=== PATIENT | male | born 1990 | race American Indian/Alaskan Native ===

== ENCOUNTER 2021-06-23 18:48 | Emergency (ER) | payer SELFPAY ==
[2021-06-23 19:12] VITALS: BP 127/85
--- NOTE | 2021-06-23 21:06 | Emergency Department Report ---
ED Abdominal Pain HPI - General Chief Complaint: Abdominal Pain Stated Complaint: STOMACH PAIN RT FOOT SWOLLEN Time Seen by Provider: 06/23/21 20:54 Source: patient Mode of arrival: Ambulatory Limitations: No Limitations - History of Present Illness Initial Comments: Patient presented with generalized abdominal pain. The started earlier in the day was in the periumbilical area. He described it is aching and cramping. He believes that he had food poisoning. He ate at a diner. Other people ate with him. He is unsure if they were ill or not. He states that the pain was cramping and doubled him over. He had some nausea associated with this. There was no hematemesis or coffee-ground emesis. He states that the symptoms are better now, although not completely resolved. The pain did not radiate or migrate. It was not associate with any kind of trauma or recent travel. He has had no change in bowel habits or urinary habits. Patient also states that he injured his right foot at work several days ago. He has pain in the anterior aspect and thinks that he may have sprained it. The pain is worse with ambulation and weightbearing. It is worse with palpation. He has noticed some swelling in this area. This is not involving the ankle itself, but the proximal area of the right foot. Severity scale (0 -10): 5 - Related Data Previous Rx's Medication Instructions Recorded Last Taken Type Hyoscyamine Subl [Levsin Sl 0.125 0.125 mg SL Q6HR PRN #20 tab 06/23/21 Unknown Rx TAB] Ibuprofen [Motrin 600 MG tab] 600 mg PO Q8H PRN #20 tablet 06/23/21 Unknown Rx Ondansetron [Zofran Odt] 4 mg PO Q8HR PRN #20 tab.rapdis 06/23/21 Unknown Rx Allergies Allergy/AdvReac Type Severity Reaction Status Date / Time No Known Allergies Allergy Unverified 06/23/21 19:12 ED Review of Systems ROS: Stated complaint: STOMACH PAIN RT FOOT SWOLLEN Other details as noted in HPI Comment: All other systems reviewed and negative Constitutional: denies: fever Eyes: denies: eye pain ENT: denies: throat pain Respiratory: denies: cough Cardiovascular: denies: chest pain Endocrine: denies: unexplained weight loss Gastrointestinal: as per HPI Genitourinary: denies: dysuria Musculoskeletal: denies: back pain Skin: denies: rash Neurological: denies: headache Hematological/Lymphatic: denies: easy bruising ED Past Medical Hx - Past Medical History Previous Medical History?: No - Family History Family history: no significant - Medications Home Medications: Home Medications Medication Instructions Recorded Confirmed Last Taken Type Hyoscyamine Subl [Levsin Sl 0.125 0.125 mg SL Q6HR PRN #20 tab 06/23/21 Unknown Rx TAB] Ibuprofen [Motrin 600 MG tab] 600 mg PO Q8H PRN #20 tablet 06/23/21 Unknown Rx Ondansetron [Zofran Odt] 4 mg PO Q8HR PRN #20 tab.rapdis 06/23/21 Unknown Rx ED Physical Exam - General Limitations: No Limitations, Other ( Pulse ox was noted and normal.) General appearance: alert, other ( Mild discomfort) - Head Head exam: Present: atraumatic, normocephalic, normal inspection - Eye Eye exam: Present: normal appearance, EOMI. Absent: scleral icterus - ENT ENT exam: Present: normal exam, normal orophraynx, normal external ear exam - Neck Neck exam: Present: normal inspection. Absent: meningismus - Respiratory Respiratory exam: Present: normal lung sounds bilaterally. Absent: respiratory distress - Cardiovascular Cardiovascular Exam: Present: regular rate, normal rhythm - GI/Abdominal GI/Abdominal exam: Present: soft, tenderness ( mild periumbilical tenderness), other ( no tenderness over McBurney's point). Absent: guarding, rebound - Extremities Exam Extremities exam: Present: normal capillary refill, other ( there is mild edema and tenderness over the proximal aspect of the right foot. There is no deformity. Pulses are equal and symmetric in the dorsalis pedis and posterior tibial areas. Sensation is intact. Ankle is nontender.) - Back Exam Back exam: Present: full ROM - Neurological Exam Neurological exam: Present: alert, oriented X3, CN II-XII intact, normal gait. Absent: motor sensory deficit - Psychiatric Psychiatric exam: Present: normal affect, normal mood - Skin Skin exam: Present: warm, dry ED Course Vital Signs 06/23/21 19:09 Temperature 98.9 F Pulse Rate 84 Respiratory 16 Rate Blood Pressure 127/85 [Left] O2 Sat by Pulse 99 Oximetry - Reevaluation(s) Reevaluation #2: 06/23/21 21:06 Labs ordered. Reevaluation #3: 06/23/21 22:32 Labs and x-rays are noted. Patient was discharged. ED Medical Decision Making - Lab Data Result diagrams: 06/23/21 21:13 06/23/21 21:13 - Medical Decision Making Patient presented with generalized abdominal pain. Etiology for this was unclear. It certainly could be related to food poisoning. He has no peritoneal findings. There is no tenderness in the right upper quadrant that would suggest biliary disease. Has no tenderness in the right lower quadrant to suggest appendicitis. Prior to discharge, abdomen soft and nontender. He certainly does not clinically have hepatitis or pancreatitis based on his presentation or laboratory evaluation. There is no distention or tympany to suggest bowel obstruction. He did have some ankle pain and foot pain. This is felt to be more sprain related. There is no evidence of acute fracture or dislocation. Critical Care Time: No Critical care attestation.: If time is entered above; I have spent that time in minutes in the direct care of this critically ill patient, excluding procedure time. ED Disposition Clinical Impression: Generalized abdominal pain Right foot sprain Qualifiers: Encounter type: initial encounter Qualified Code(s): S93.601A - Unspecified sprain of right foot, initial encounter Disposition: HOME / SELF CARE / HOMELESS Is pt being admited?: No Does the pt Need Aspirin: No Condition: Stable Instructions: Abdominal Pain, Adult, How to Use Cold Therapy, [id number], Elastic Bandage and RICE Therapy, Pain Without a Known Cause Additional Instructions: Have a bland diet. Drink plenty of water. Return for problems. Follow-up with your regular doctor for recheck and further management. Rest, ice, and elevate the foot. Prescriptions: Hyoscyamine Subl [Levsin Sl 0.125 TAB] 0.125 mg SL Q6HR PRN #20 tab PRN Reason: pain Ibuprofen [Motrin 600 MG tab] 600 mg PO Q8H PRN #20 tablet PRN Reason: Pain Ondansetron [Zofran Odt] 4 mg PO Q8HR PRN #20 tab.rapdis PRN Reason: Nausea Referrals: DENISE MOORE MD [Primary Care Provider] - 3-5 Days CATRACHITA YING MD [Staff Physician] - 3-5 Days Forms: Work/School Release Form(ED)
[2021-06-23] MEDS ORDERED: DICYCLOMINE 20 MG TAB PO ONE (21:07)
[2021-06-23 21:36] LABS: Hematocrit 44.2 % (35.5-45.6); Hemoglobin 14.7 gm/dl (11.8-15.2); Mean Corpuscular HGB Conc 33 % (32-34); Mean Corpuscular Volume 89 fl (84-94); Platelet Count 257 K/mm3 (140-440); Red Blood Count 4.96 M/mm3 (3.65-5.03); Red Cell Distribution Width 15.8 % (13.2-15.2)
--- NOTE | 2021-06-23 21:42 | XRay Report ---
RIGHT FOOT 3 VIEW(S) INDICATION / CLINICAL INFORMATION: injury RT FOOT TODAY COMPARISON: None available. FINDINGS: BONES / JOINT(S): No acute fracture or subluxation. No significant arthritis. SOFT TISSUES: No significant abnormality. ADDITIONAL FINDINGS: None. Signer Name: Steven Meza MD Signed: 06/23/2021 9:38 PM Workstation Name: [id number]
[2021-06-23 21:53] LABS: Alanine Aminotransferase 22 units/L (7-56); Albumin 4.7 g/dL (3.9-5); BUN/Creatinine Ratio 16; Blood Urea Nitrogen 13 mg/dL (9-20); Calcium 9.7 mg/dL (8.4-10.2); Hemolysis Index 45
== END 2021-06-23 23:57 | disposition home or self-care (01) ==
LOC: ED 18:48
DX: S93.691A Other sprain of right foot, initial encounter (principal); R10.33 Periumbilical pain; Z79.899 Other long term (current) drug therapy; X58.XXXA Exposure to other specified factors, initial encounter; Y93.89 Activity, other specified; Y92.488 Other paved roadways as the place of occurrence of the external cause; Y99.8 Other external cause status
CPT/HCPCS: 36415; 80053; 83690; 85027; 99283